=== PATIENT | female | born 1980 | race African-American/Black ===

== ENCOUNTER 2016-11-26 14:35 | Emergency (ER) | payer OTHER ==
[~2016-11-26] VITALS: Ht 167.6 cm; Wt 108.9 kg
--- NOTE | ~2016-11-26 | CR63 ---
[facility] A Service of [facility] RADIOLOGY TEXT RESULTS PATIENT: JULIA PIZANO LOCATION: [facility] : 82 UNIT #: [id number] AGE: [address]: Jesus Manuel Gross MD SEX: F ORDER DR: [id number] [facility] [address] [place], [place] [address] [id number] MR#: [id number] Acc #: [id number] NAME: JULIA PIZANO : 1980 SEX: F STUDY DATE/TIME: 11/26/2016 15:35 UNIT: ALYCE ROOM: STUDY DESCRIPTION: CR Chest 2 View Attending Physician: Jesus Manuel Gross M.D. Ordering Physician: Jesus Manuel Gross M.D. Primary Care Physician: No Primary Care Physician MEDICAL IMAGING REPORT This report is preliminary unless electronic signature is present EXAM PA and lateral chest, 11/26/2016. HISTORY Cough, congestion, wheezing for 3 days. Previous smoking history. COMPARISON AP portable chest, 05/18/2014. FINDINGS Heart size is upper limits normal. No definite acute airspace disease is seen. Study is attenuated by body habitus. No pleural effusion or pneumothorax is identified. IMPRESSION 1. Heart size is upper limits normal. 2. No acute chest findings. 3. Size-attenuated study. Dictated by... Jessica Spears M.D. THIS IS AN ELECTRONICALLY VERIFIED REPORT Jessica Spears M.D. at 11/28/2016 9:52 AM EL/danette TD: 11/27/2016 12:44 JOB #: [id number] MEDICAL IMAGING REPORT Page 1 of 1 COPY
--- NOTE | ~2016-11-26 | EKG ---
PATIENT: JULIA PIZANO UNIT #: [id number] Ventricular Rate: 84 BPM Atrial Rate: 84 BPM P-R Interval: 146 ms QRS Duration: 76 ms Q-T Interval: 414 ms QTC Calculation(Bezet): 489 ms P Leopold: 29 degrees Calculated R Leopold: 53 degrees Calculated T Leopold: -7 degrees Diagnosis Line: Normal sinus rhythm Diagnosis Line: T wave abnormality, consider anterolateral Diagnosis Line: ischemia Diagnosis Line: Abnormal ECG Diagnosis Line: When compared with ECG of 17-OCT-2011 18:28, Diagnosis Line: Nonspecific T wave abnormality no longer evident Diagnosis Line: in Anterior leads Diagnosis Line: Confirmed by YULIA WRIGHT MD ([id number]) on 11/26/2016 Diagnosis Line: 11:09:34 PM INTERPRETING MD: KYLE LIN
[~2016-11-26 14:35] MED LIST: ALBUTEROL17 GM INH; ALBUTEROL17 GM NEB; IBUPROFEN800 MG PO; OMEPRAZOLE40 MG PO; PEPCID40 MG PO
[2016-11-26 16:40] LABS: BASOPHIL# 0.1 X10e3 (0-0.3); BASOPHIL% 0.9 % (0-2.5); EOSINOPHIL# 0.5 X10e3 (0-0.7); HEMATOCRIT 36.3 % (35.0-45.0); HEMOGLOBIN 11.8 gm/dL (12.0-16.0); LYMPHOCYTE% 29.5 % (17.0-45.0); MEAN CELL VOLUME 77.6 FL (83-96); MEAN CORPUSCULAR HEMOGLOBIN 25.1 PG (28-34); MEAN CORPUSCULAR HGB CONC 32.4 g/dL (30-36); MEAN PLATELET VOLUME 8.4 FL (6.5-11.5); MONOCYTE# 1.1 X10e3 (0-1.0); MONOCYTE% 11.2 % (3.0-12.0); NEUTROPHIL# 5.4 X10e3 (1.5-7.1); NEUTROPHIL% 53.4 % (40-75); PLATELET COUNT 354 X10e3 (140-420); RED BLOOD COUNT 4.68 X10e (3.90-5.30); RED CELL DISTRIBUTION WIDTH 15.6 % (11.0-15.5); WHITE BLOOD COUNT 10.2 X10e3 (4.0-10.5)
[2016-11-26 16:41] LABS: DIFF IND NO
[2016-11-26 17:02] LABS: ALBUMIN SERUM 3.7 g/dL (3.5-5.0); BILIRUBIN,TOTAL 0.6 mg/dL (0.2-2.0); CALCIUM SERUM 8.6 mg/dL (8.4-10.2); CREATININE SERUM 0.8 mg/dL (0.6-1.4); GLOM FILT RATE Estimated 110.8 mL/min (>60); POTASSIUM 3.8 mmol/L (3.5-5.1); PROTEIN TOTAL SERUM 7.2 g/dL (6.0-8.3)
== END 2016-11-26 18:23 | disposition home or self-care (01) ==
LOC: CED 14:35
PROVIDERS: Emergency Medicine
DX: J20.9 Acute bronchitis, unspecified (principal); J06.9 Acute upper respiratory infection, unspecified; F17.200 Nicotine dependence, unspecified, uncomplicated; Z98.890 Other specified postprocedural states
CPT/HCPCS: 36415; 71020; 80053; 84703; 85025; 87040; 93005; 94640; 96361; 96374; 99284; J1885